=== PATIENT | female | born 1955 | race Caucasian/White ===

== ENCOUNTER → 2021-10-10 10:44 | Outpatient (BNVA) | payer MEDICARE, OTHER, SELFPAY | PROVIDERS: Family Provider Physician Assistant Medical; Visit Provider Nurse Practitioner Family | DX: R35.0 Frequency of micturition (principal); R35.89 Other polyuria; N39.0 Urinary tract infection, site not specified | CPT/HCPCS: 81000 ==

== ENCOUNTER 2023-01-19 04:51 | Inpatient (IN) | payer MEDICARE, OTHER, SELFPAY ==
[2023-01-19] VITALS (10 sets, daily range): BP systolic 119–150; BP diastolic 42–93; PULSE 64–97; RESP 16–25; TEMP 35.8–36.7; O2SAT 92–98; BMI 32.6
--- NOTE | 2023-01-19 06:01 | USCV_ITS ---
Colette Asif Age: 67 Gender: F : 1955 Exam Date: 01/19/2023 10:13 Ordering Phys: Ary Boswell MD Technologist: Alexander Dias Exam Location: [facility] [place] Indication: afib BP: 130 / 80 HR: 65 Rhythm: Sinus Technical Quality: Adequate MEASUREMENTS (Male / Female) Normal Values 2D ECHO LVOT Diameter 2.0 cm LV Ejection Fraction MOD 2C 66.2 % LV Ejection Fraction 2C AL 69.0 % LA Diameter 3.5 cm LA Width 3.2 cm LA Height 4.6 cm RA Width 3.2 cm RA Height 3.6 cm Aorta at Sinotubular Diameter 2.0 cm IVC Diameter 1.4 cm M-MODE Aortic Annulus Diameter 2.1 cm LA Ao Ratio MM 1.7 MV E Point Septal Separation 0.3 cm DOPPLER AV Peak Velocity 141.0 cm/s LVOT Peak Velocity 136.0 cm/s AV Area Cont Eq vti 3.4 cm squared AV Area Cont Eq pk 3.1 cm squared MV Peak Velocity 144.0 cm/s MV Area PHT 5.0 cm squared Mitral E to A Ratio 0.8 MV E' Velocity 40.5 cm/s Mitral E to MV E' Ratio 13.6 Mitral E to LV E' Lateral Ratio 16.6 Mitral E to LV E' Septal Ratio 11.8 TR Peak Velocity 250.5 cm/s TR Peak Gradient 25.1 mmHg TR Mean Velocity 191.3 cm/s TR Mean Gradient 16.3 mmHg TR Velocity Time Integral 64.9 cm Right Atrial Pressure 3.0 mmHg Pulmonary Artery Systolic Pressu 28.1 mmHg PV Peak Velocity 105.3 cm/s RV Acceleration Time 0.1 s RV Ejection Time 0.3 s RV AcT/ET 0.4 FINDINGS Left Ventricle Left ventricle is normal in size. LV systolic function is normal with EF 55 to 60%. No regional wall motion abnormalities are seen. Grade 1 diastolic dysfunction. Right Ventricle Normal size and function Right Atrium Normal in size Left Atrium Normal in size Mitral Valve Mild mitral annular calcification seen. Trace mitral regurgitation. Aortic Valve Structurally normal aortic valve. No significant stenosis or regurgitation. Tricuspid Valve Mild tricuspid regurgitation. Pulmonary artery systolic pressure is normal. Pulmonic Valve Mild pulmonic regurgitation. Pericardium Normal Aorta Normal in size IVC Appears to be normal CONCLUSIONS Technically limited quality echocardiogram because of poor ultrasonic windows. LV systolic function is normal with EF of 55 to 60%. Grade 1 diastolic dysfunction Trace mitral regurgitation Mild tricuspid regurgitation Mild pulmonic regurgitation. No comparison studies are available. Frandy Nowak MD (Electronically Signed) Final Date: 19 January 2023 15:55 S
--- NOTE | 2023-01-19 06:10 | PM.HP ---
Providers/Chief Complaint Admitting Physician: Ary Boswell MD Chief Complaint: Chest Pain\Afib with RVR History of Present Illness Colette Asif is a 67 year old female Medications/Allergies Home Medications Medication Instructions Recorded Confirmed Last Taken Type nitrofurantoin 100 mg PO Q12H 7 days #14 caps 10/10/21 01/19/23 01/17/23 Rx monohydrate/macrocrystals 100 mg capsule (Macrobid) vortioxetine 20 mg tablet 20 mg PO DAILY 10/10/21 01/19/23 01/17/23 History (Trintellix) atorvastatin 40 mg tablet 40 mg PO 1XD 01/19/23 01/19/23 01/18/23 History omeprazole 20 mg capsule,delayed 20 mg PO 1XD 01/19/23 01/19/23 01/18/23 History release Allergies Allergy/AdvReac Type Severity Reaction Status Date / Time aspirin Allergy Unknown Verified 10/10/21 10:42 Penicillins Allergy Unknown Verified 10/10/21 10:42 PFSH Acute PFSH: Medical History (Updated 10/10/21 @ 11:36 by SAAD Bailon) Major depression, chronic Family History (Updated 10/10/21 @ 11:33 by SAAD Bailon) Mother Hypertension Vitals/I&O/Wt Last Vital Signs Pulse 97 01/19/23 05:26 Resp 20 H 01/19/23 05:26 BP 141/42 01/19/23 05:26 Pulse Ox 95 01/19/23 05:26 O2 Del Method Room Air 01/19/23 05:26 Weight last 48 hrs Weight 68.521 kg Coding Level of Care Code Acute Code for Chg Fwd Diagnoses
--- NOTE | 2023-01-19 08:17 | P.HP_ITS ---
Providers/Chief Complaint Admitting Physician: Ary Boswell MD Chief Complaint: Chest Pain\Afib with RVR History of Present Illness Colette Asif is a 67 year old female who is traveling from [place] with past medical history of sleep apnea on CPAP, chronic and stable angina for which she follows up with her production potter in [place] with last stress test over 7 years ago, hyperlipidemia with strong family history of hyperlipidemia and CAD was transferred from the outside hospital for new onset atrial fibrillation with rapid ventricular response. As per the patient she was to travel back to [place] today when she woke up l ast night she had squeezing chest pain radiating to the neck along with nausea and left shoulder heaviness so she went to the ER where she was found to have heart rate running more than 150s. She denies any complaints currently. She states usually when she walks she does have left shoulder heaviness which has been getting worse over last 1 month. She was in the ER earlier last week because she fell and hit her head and needed at least 7-10 melita. Currently when seen in [facility] she is on Cardizem drip of 7.5 resting comfortably in bed on room air with heart rate running in 60s and has converted back to normal sinus rhythm Review of Systems 2 General: Reports: 10 or more systems reviewed and unremarkable except in HPI and below Const: Denies: fever(s), chills, body aches, change in appetite, change in weight, malaise, night sweats, diaphoresis, change in sleep pattern, daytime sl eepiness or snoring Eyes: Denies: change in vision, blurry vision, photophobia, eye discomfort or eye discharge ENMT: Denies: throat pain, enlarged tonsils, hoarseness, mouth pain, oral sores, dry mouth, tinnitus, nasal congestion or post nasal drip Card: Denies: chest pain, palpitations, irregular heart rhythm, edema, swelling of feet/ankles, lightheadedness, syncope, pre-syncope, dyspnea on exertion, orthopnea, leg pain with exertion or acrocyanosis Resp: Denies: dyspnea, productive cough, non-productive cough, wheezing, stridor, pain on inspiration, change in phlegm color, hemoptysis or chest congestion GI: Denies: abdominal pain, nausea, vomiting, hematemesis, coffee ground emesis, dysphagia, heartburn, diarrhea, constipation, bloating, GI cramping, change in bowel habits, pain on defecation, hematochezia or melena : Denies: flank pain, dysuria, urinary frequency, urinary urgency, urinary hesitancy, nocturia or hematuria Musc: Denies: neck pain, back pain, extremity pain, joint pain, joint swelling, joint redness, joint stiffness or limited range of motion Neuro: Denies: headache(s), numbness in extremities, weakness in extremities, sensory changes, lack of coordination, difficulty walking, frequent falls, dizziness, vertigo, confusion, Slurred speech present, difficulty communicating thoughts or seizure-like activity Psych: Denies: anxiety, depression, mood swings, panic attacks, hopelessness or irritability Endo: Denies: polyuria, polydipsia, tired all the time, cold intolerance, excessive sweating, flushing or heat intolerance Raciel/Lymph: Denies: easy bruising or easy bleeding All/Imm: Denies: tongue swelling, facial swelling or acute wheezing Medications/Allergies Home Medications Medication Instructions Recorded Confirmed Last Taken Type nitrofurantoin 100 mg PO Q12H 7 days #14 caps 10/10/21 01/19/23 01/17/23 Rx monohydrate/macrocrystals 100 mg capsule (Macrobid) vortioxetine 20 mg tablet 20 mg PO DAILY 10/10/21 01/19/23 01/17/23 History (Trintellix) atorvastatin 40 mg tablet 40 mg PO 1XD 01/19/23 01/19/23 01/18/23 History omeprazole 20 mg capsule,delayed 20 mg PO 1XD 01/19/23 01/19/23 01/18/23 History release Allergies Allergy/AdvReac Type Severity Reaction Status Date / Time aspirin Allergy Unknown Verified 10/10/21 10:42 Penicillins Allergy Unknown Verified 10/10/21 10:42 PFSH Acute PFSH: Medical History (Updated 01/19/23 @ 10:50 by Tc Bradford MD) Carpal tunnel syndrome on right Fall HLD (hyperlipidemia) Major depression, chronic New onset a-fib Sleep apnea with use of continuous positive airway pressure (CPAP) Unstable angina Surgical History (Updated 01/19/23 @ 09:08 by Tc Bradford MD) Status post breast reduction Family History (Updated 01/19/23 @ 09:02 by Tc Bradford MD) Mother Hypertension Other Hyperlipidemia Vitals/I&O/Wt Last Vital Signs Temp 97.9 F 01/19/23 07:29 Pulse 86 01/19/23 07:29 Resp 16 01/19/23 07:29 BP 119/67 01/19/23 07:29 Pulse Ox 97 01/19/23 07:29 O2 Del Method Room Air 01/19/23 07:29 Weight last 48 hrs Weight 68.521 kg Physical Exam 2 Narrative: General: No acute distress, AO x3, pleasant HEENT: PERRLA, pupils bilaterally equal and reactive, well-healed scar on the frontal scalp Chest: Normal vesicular breath sounds, no added sounds, equal good air entry bilaterally CVS: S1-S2 regular, no murmurs, no tachycardia, no gallops, no rubs Abdomen: Soft, nontender, no organomegaly, bowel sounds present Neuro: No focal deficits, no facial deformity, AO x3, power 5/5 in all limbs Data 01/19/23 08:40 01/19/23 08:40 A&P Assessment and plan (1) New onset a-fib: New diagnosis. Back to normal sinus rhythm currently. Currently on Cardizem 7.5 drip. Start on 30 mg every 6 hourly. Try to wean Cardizem drip off keeping heart rate less than 100. Ambulate. Telemetry monitoring. Check echocardiogram, D-dimer, TSH, urine drug screen. Discussed in detail with patient regarding need for possible anticoagulation for stroke prevention given possibility of paroxysmal A-fib. Discussed about merits versus demerits of being on anticoagulation. She is agreeable for anticoagulation. Given recent fall and head injury requiring sutures for now we will get a CT head. If negative for any bleed will start on Eliquis 5 mg twice daily. Continue prophylactic Lovenox till then. (2) HLD (hyperlipidemia): (3) Unstable angina: Seems to be chronic but getting worse recently over the last 1 month. Significant typical symptoms during tachycardia. Patient will need a cardiac stress test for further work-up. She lives in [place] and has a production potter over there. Last stress testing more than 6 years ago. Patient was to get cardiac stress test while admitted currently. We did discuss that tomorrow being the weekend the next stress test availability will be on Sunday. Patient is agreeable to stay. Start on aspirin 81 mg daily. Continue with home dose of atorvastatin. Check A1c, lipid panel, troponin one-time. Check echocardiogram as above. (4) Sleep apnea with use of continuous positive airway pressure (CPAP): Continue home CPAP Plan Full code Cardiac diet Lovenox for DVT prophylaxis Protonix for PUD prophylaxis Attestations Medical Necessity Statement*: Admission for more than 2 midnights for management of atrial fibrillation with rapid ventricular response while Cardizem drip was weaned off and transition to oral medication, typical significant unstable angina requiring ACS work-up Diagnoses New onset a-fib I48.91 HLD (hyperlipidemia) E78.5 Unstable angina I20.0 Sleep apnea with use of continuous positive airway pressure (CPAP) G47.30
[2023-01-19] MEDS: ondansetron 2 mg/ML SDV 2 mL 4 MG IVP (08:22)
[2023-01-19] MEDS: enoxaparin 40 mg/0.4 mL Syringe SUBCUT (08:22)
[2023-01-19] MEDS: pantoprazole DR 40 mg Tablet PO (08:22)
[2023-01-19 08:55] LABS: Basophils # 0.1 10^3/uL (0.0-0.1); Basophils % 0.6 %; Eosinophils # 0.1 10^3/uL (0.0-0.8); Eosinophils % 1.7 %; Hematocrit 39.9 % (36-47); Lymphocytes # 2.5 10^3/uL (0.8-4.8); Lymphocytes % 31.3 %; Mean Corpuscular HGB Conc 33.3 g/dL (30-55); Mean Corpuscular Hemoglobin 28.7 pg (27-33); Mean Platelet Volume 13.2 fL (7.4-10.4); Monocytes # 0.6 10^3/uL (0.2-0.9); Monocytes % 7.6 %; Neutrophils # 4.75 10^3/uL (1.8-7.7); Neutrophils % 58.6 %; Nucleated Red Blood Cells % 0 %; Platelet Count 149 10^3/cmm (157-399); Red Blood Count 4.64 10^6/uL (3.85-5.65); Red Cell Distribution Width 14.4 % (12.1-15.1); White Blood Count 8.12 10^3/uL (3.29-11.43)
--- NOTE | 2023-01-19 08:58 | CT_ITS ---
WS: [id number] CT HEAD TECHNIQUE: Noncontrast CT of the head obtained from the skullbase to the vertex. CLINICAL INFORMATION: History of head injury COMPARISON: None. DLP: 1026.[address] scans at [facility] use at least one of these dose optimization techniques: automated e xposure control; mA and/or kV adjustment per patient size (includes targeted exams where dose is matc hed to clinical indication); or iterative reconstruction. FINDINGS: No evidence of intracranial hemorrhage or mass effect. Ventricular system and basal cisterns are jo nt. Mild small vessel changes with moderate parenchymal volume loss in the frontal lobes with promine nt subarachnoid spaces. No extra-axial fluid collections. No evidence of mass or mass effect. Paranasal sinuses and mastoid air cells are well aerated. .Normal visualized soft tissues. IMPRESSION: 1. No evidence of intracranial hemorrhage or mass effect. 2. Mild small vessel changes with moderate parenchymal volume loss worse in the frontal lobes. 3. Vascular calcification. 4. Paranasal sinuses and mastoid air cells are well aerated. 5. No acute intracranial findings.
[2023-01-19 09:05] LABS: Estmated Average Glucose 140; Hemoglobin A1C 6.5 % (4.0-6.0)
[2023-01-19 09:08] LABS: D Dimer <= 0.27 ug/mLFEU (0-0.59)
[2023-01-19 09:21] LABS: Alanine Aminotransferase 35 U/L (0-33); Albumin Level 3.9 g/dL (3.5-5.2); Alkaline Phosphatase 132 U/L (35-105); Aspartate Amino Transferase 24 U/L (0-32); Blood Urea Nitrogen 13 mg/dL (8-23); Calcium 8.7 mg/dL (8.5-10.5); Carbon Dioxide 25 mmol/L (22-29); Chloride 107 mmol/L (98-107); Globulin 2.9 g/dL (1.3-4.6); Glomerular Filtration Rate 123.4 mL/min (90-130); Glucose 128 mg/dL (65-115); Magnesium 1.9 mg/dL (1.7-2.3); Osmolality Calculated 296 mOsm/kg (285-295); Sodium 142 mmol/L (136-145); Thyroid Stimulating Hormone 3.11 uIU/mL (0.27-4.20); Total Bilirubin 0.4 mg/dL (0.15-1.2); Total Protein 6.8 g/dL (6.6-8.7)
[2023-01-19 09:25] LABS: Iron 81 ug/dL (37-145); Percent Saturation 27.5 % (20-50); Total Iron Binding Capacity 294 mcg/dl; Unsaturated Iron Binding 213 ug/dL (112-347)
[2023-01-19 09:32] LABS: Amphetamines Screen Urine Negative (Negative); Barbiturates Screen Urine Negative (Negative); Benzodiazepines Screen Urine Negative (Negative); Cocaine Screen Urine Negative (Negative); Opiate Screen Urine Negative (Negative); PCP Screen Urine Negative (Negative); THC Screen Urine Negative (Negative)
[2023-01-19 09:37] LABS: Troponin T (5th) Once 17 ng/L (0-10)
[2023-01-19 09:41] LABS: Procalcitonin 0.05 ng/mL (0-0.5); Vitamin B12 444 pg/mL (232-1245)
[2023-01-19] MEDS: dilTIAZem 30 mg Tablet PO ×2 (09:50→17:42)
[2023-01-19 11:16] LABS: Add Urine Microscopic? YES; Bilirubin Urine Neg (Negative); Blood Urine Neg (Negative); Glucose Urine UA Norm (Normal); Ketones Urine 1+ (Negative); Leukocyte Esterase Urine Trace (Negative); Nitrate Urine Negative (Negative); Protein Urine Neg (Negative); Urine Appearance Clear (CLEAR); Urine Color Yellow (Yellow); Urobilinogen Urine Norm (Negative); pH Urine 5 (5-7)
[2023-01-19 11:17] LABS: Add Urine Culture? No; Bacteria Urine TRACE /hpf; Mucus Urine TRACE /hpf; RBC Urine 0-4 /hpf (0-2); Squamous Epithelial Cell Urine 0-4 /hpf (0-5); WBC Urine 0-4 /hpf (0-5)
--- NOTE | 2023-01-19 12:26 | PC.SOCIAL ---
Pg 2 IMM Explained to pt Pg 2 IMM. No questions voiced. Provided pt a copy. Initialed, dated, & timed a copy & placed in chart.
[2023-01-19] MEDS: enoxaparin 80 mg/0.8 mL Syringe 70 MG SUBCUT (17:42)
[2023-01-19] MEDS: NON-FORMULARY MEDICATION (Vortioxetine [Trintellix] 20 MG) 20 EACH PO (20:24)
[2023-01-20 00:04] VITALS: PULSE 70; RESP 18
[2023-01-20] MEDS: dilTIAZem 30 mg Tablet PO ×2 (01:07→08:43)
[2023-01-20 03:31] LABS: Basophils % 0.4 %; Eosinophils # 0.2 10^3/uL (0.0-0.8); Eosinophils % 2.6 %; Lymphocytes # 2.7 10^3/uL (0.8-4.8); Mean Corpuscular HGB Conc 32.6 g/dL (30-55); Mean Corpuscular Hemoglobin 28.5 pg (27-33); Mean Corpuscular Volume 87.4 fl (85-98); Mean Platelet Volume 13.6 fL (7.4-10.4); Monocytes # 0.7 10^3/uL (0.2-0.9); Neutrophils % 47.7 %; Nucleated Red Blood Cells % 0 %; Platelet Count 124 10^3/cmm (157-399); Red Blood Count 4.35 10^6/uL (3.85-5.65); Red Cell Distribution Width 14.3 % (12.1-15.1); White Blood Count 6.92 10^3/uL (3.29-11.43)
[2023-01-20 04:06] LABS: Alanine Aminotransferase 35 U/L (0-33); Albumin Level 3.6 g/dL (3.5-5.2); Alkaline Phosphatase 122 U/L (35-105); Anion Gap 11.5 (5-19); Aspartate Amino Transferase 23 U/L (0-32); Blood Urea Nitrogen 10 mg/dL (8-23); Calcium 8.4 mg/dL (8.5-10.5); Carbon Dioxide 26 mmol/L (22-29); Chloride 104 mmol/L (98-107); Globulin 2.7 g/dL (1.3-4.6); Glucose 100 mg/dL (65-115); Osmolality Calculated 285 mOsm/kg (285-295); Potassium 3.5 mmol/L (3.5-5.1); Sodium 138 mmol/L (136-145); Total Bilirubin 0.3 mg/dL (0.15-1.2); Total Protein 6.3 g/dL (6.6-8.7)
[2023-01-20 04:07] LABS: Cholesterol 135 mg/dL (0-200); HDL Cholesterol 27 mg/dL (60-100); LDL Cholesterol Calculated 53 mg/dL (50-129); Magnesium 2.2 mg/dL (1.7-2.3); Phosphorus 3.6 mg/dL (2.5-4.5); Triglycerides 275 mg/dL (0-150); VLDL Cholestrol Calculation 55 mg/dL (0-30)
[2023-01-20 04:12] VITALS: BP 112/60; PULSE 68; RESP 19; TEMP 36.4
[2023-01-20 04:23] LABS: Folate Level 11.4 ng/mL (4.8-37.3)
[2023-01-20 04:31] VITALS: PULSE 56
[2023-01-20] MEDS: enoxaparin 80 mg/0.8 mL Syringe 70 MG SUBCUT (05:34)
[2023-01-20 07:31] VITALS: BP 145/78; PULSE 71; RESP 22; O2SAT 96
[2023-01-20] MEDS: atorvastatin 40 mg Tablet PO (08:43)
[2023-01-20] MEDS: pantoprazole DR 40 mg Tablet PO (08:43)
[2023-01-20 10:00] VITALS: BMI 32.6
--- NOTE | 2023-01-20 10:58 | PM.DCS ---
Discharge Providers Date of Admission: 01/19/23 04:51 Date of Discharge: January 20, 2023 Attending Provider at Admission: Ary Boswell MD Attending Provider at Discharge: Tc Bradford MD Diagnoses at Discharge Discharge Diagnosis (1) New onset a-fib: Status: Acute (2) HLD (hyperlipidemia): Status: Acute (3) Unstable angina: Status: Acute (4) Sleep apnea with use of continuous positive airway pressure (CPAP): Status: Acute Reason for Visit Reason for Visit: Chest Pain\Afib with RVR Hospital Course Hospital Course Colette Asif is a 67 year old female who is traveling from [place] with past medical history of sleep apnea on CPAP, chronic and stable angina for which she follows up with her drug safety coordinator in [place] with last stress test over 7 years ago, hyperlipidemia with strong family history of hyperlipidemia and CAD was transferred from the outside hospital for new onset atrial fibrillation with rapid ventricular response. As per the patient she was to travel back to [place] today when she woke up last night she had squeezing chest pain radiating to the neck along with nausea and left shoulder heaviness so she went to the ER where she was found to have heart rate running more than 150s.? She denies any complaints currently.? She states usually when she walks she does have left shoulder heaviness which has been getting worse over last 1 month.? She was in the ER earlier last week because she fell and hit her head and needed at least 7-10 melita. Currently when seen in [facility] she is on Cardizem drip of 7.5 resting comfortably in bed on room air with heart rate running in 60s and has converted back to normal sinus rhythm. Patient was admitted to the hospital further evaluation and management of atrial fibrillation with rapid ventricular response. She was transitioned over to oral Cardizem. Her heart rate remained stable both at rest and on exertion. Echocardiogram was done which showed a normal EF without regional wall motion abnormality. Anticoagulation was discussed in detail with the patient. Solis Vascor 3 for sex, age and history of hypertension. She verbalized understanding is agreeable for full dose aspirin. Patient remained chest pain-free during hospitalization. Troponins were negative. Patient needs a stress test to rule out ACS given significant chest discomfort when she was tachycardic. Need for stress test were discussed in detail. Patient states she has a drug safety coordinator back in [place] and would want to get the stress test with the same physician if she can. She is discharged home at a stable condition on oral Cardizem 30 mg 3 times a day, aspirin 325 mg daily for anticoagulation with advised to follow-up with her outpatient drug safety coordinator at the earliest for need of Lexiscan stress test. Patient was counseled in detail about lifestyle modifications. Physical Exam Narrative: General: No acute distress, AO x3, pleasant HEENT: PERRLA, pupils bilaterally equal and reactive, well-healed scar on the frontal scalp Chest: Normal vesicular breath sounds, no added sounds, equal good air entry bilaterally CVS: S1-S2 regular, no murmurs, no tachycardia, no gallops, no rubs Abdomen: Soft, nontender, no organomegaly, bowel sounds present Neuro: No focal deficits, no facial deformity, AO x3, power 5/5 in all limbs Discharge Data Studies Completed and Pending Completed Studies During Hospitalization Category Date Time Status CT head wo con* [id number] Routine Cat Scan 01/19/23 08:58 Completed CV. echo complete* [id number] Routine Ultrasound 01/19/23 06:01 Completed Pending at discharge Category Date Time Status Sestamibi Stress Test Request Routine Exams 01/19/23 11:57 Ordered MAG [Magnesium] AM LABS Lab 01/21/23 04:00 Ordered MAG [Magnesium] AM LABS Lab 01/22/23 04:00 Ordered PHOS [Phosphorus] AM LABS Lab 01/21/23 04:00 Ordered PHOS [Phosphorus] AM LABS Lab 01/22/23 04:00 Ordered NM beatrice perf SPECT r/s* [id number] Routine Nuc Med 01/22/23 07:00 Ordered Laboratory Results WBC 6.92 10^3/uL (3.29-11.43) 01/20/23 02:56 RBC 4.35 10^6/uL (3.85-5.65) 01/20/23 02:56 Hgb 12.40 g/dL (11.27-16.99) 01/20/23 02:56 Hct 38.0 % (36-47) 01/20/23 02:56 MCV 87.4 fl (85-98) 01/20/23 02:56 MCH 28.5 pg (27-33) 01/20/23 02:56 MCHC 32.6 g/dL (30-55) 01/20/23 02:56 RDW 14.3 % (12.1-15.1) 01/20/23 02:56 Plt Count 124 10^3/cmm (157-399) L 01/20/23 02:56 MPV 13.6 fL (7.4-10.4) H 01/20/23 02:56 Neut % (Auto) 47.7 % 01/20/23 02:56 Lymph % (Auto) 39.0 % 01/20/23 02:56 Trego % (Auto) 10.0 % 01/20/23 02:56 Eos % (Auto) 2.6 % 01/20/23 02:56 Baso % (Auto) 0.4 % 01/20/23 02:56 Neut # (Auto) 3.30 10^3/uL (1.8-7.7) 01/20/23 02:56 Lymph # (Auto) 2.7 10^3/uL (0.8-4.8) 01/20/23 02:56 [place] # (Auto) 0.7 10^3/uL (0.2-0.9) 01/20/23 02:56 Eos # (Auto) 0.2 10^3/uL (0.0-0.8) 01/20/23 02:56 Baso # (Auto) 0.0 10^3/uL (0.0-0.1) 01/20/23 02:56 Nucleated RBC % (auto) 0 % 01/20/23 02:56 Nucleated RBCs # 0.0 /100WBC 01/20/23 02:56 D-Dimer <= 0.27 ug/mLFEU (0-0.59) 01/19/23 08:40 Sodium 138 mmol/L (136-145) 01/20/23 02:56 Potassium 3.5 mmol/L (3.5-5.1) 01/20/23 02:56 Chloride 104 mmol/L (98-107) 01/20/23 02:56 Carbon Dioxide 26 mmol/L (22-29) 01/20/23 02:56 Anion Gap 11.5 (5-19) 01/20/23 02:56 BUN 10 mg/dL (8-23) 01/20/23 02:56 Creatinine 0.6 mg/dL (0.5-0.9) 01/20/23 02:56 GFR Calculation 100.0 mL/min (90-130) 01/20/23 02:56 Glucose 100 mg/dL (65-115) 01/20/23 02:56 Estimat Average Glucose 140 01/19/23 08:40 Hemoglobin A1c 6.5 % (4.0-6.0) H 01/19/23 08:40 Calculated Osmolality 285 mOsm/kg (285-295) 01/20/23 02:56 Calcium 8.4 mg/dL (8.5-10.5) L 01/20/23 02:56 Phosphorus 3.6 mg/dL (2.5-4.5) 01/20/23 02:56 Magnesium 2.2 mg/dL (1.7-2.3) 01/20/23 02:56 Iron 81 ug/dL (37-145) 01/19/23 08:40 TIBC 294 mcg/dl 01/19/23 08:40 % Saturation 27.5 % (20-50) 01/19/23 08:40 Unsat Iron Binding 213 ug/dL (112-347) 01/19/23 08:40 Total Bilirubin 0.3 mg/dL (0.15-1.2) 01/20/23 02:56 AST 23 U/L (0-32) 01/20/23 02:56 ALT 35 U/L (0-33) H 01/20/23 02:56 Alkaline Phosphatase 122 U/L (35-105) H 01/20/23 02:56 Troponin T Gen 5 ng/L 17 ng/L (0-10) H 01/19/23 08:40 Total Protein 6.3 g/dL (6.6-8.7) L 01/20/23 02:56 Albumin 3.6 g/dL (3.5-5.2) 01/20/23 02:56 Globulin 2.7 g/dL (1.3-4.6) 01/20/23 02:56 Triglycerides 275 mg/dL (0-150) H 01/20/23 02:56 Cholesterol 135 mg/dL (0-200) 01/20/23 02:56 LDL Cholesterol, Calc 53 mg/dL (50-129) 01/20/23 02:56 Total VLDL Cholesterol 55 mg/dL (0-30) H 01/20/23 02:56 HDL Cholesterol 27 mg/dL (60-100) L 01/20/23 02:56 Cholesterol/HDL Ratio 5.00 mg/dL (0.0-4.40) H 01/20/23 02:56 Vitamin B12 444 pg/mL (232-1245) 01/19/23 08:40 Folate 11.4 ng/mL (4.8-37.3) 01/20/23 02:56 Procalcitonin 0.05 ng/mL (0-0.5) 01/19/23 08:40 TSH 3.11 uIU/mL (0.27-4.20) 01/19/23 08:40 Urine Color Yellow (Yellow) 01/19/23 09:03 Urine Appearance Clear (CLEAR) 01/19/23 09:03 Urine pH 5 (5-7) 01/19/23 09:03 Ur Specific [place] 1.020 (1.005-1.030) 01/19/23 09:03 Urine Protein Neg (Negative) 01/19/23 09:03 Urine Glucose (UA) Norm (Normal) 01/19/23 09:03 Urine Ketones 1+ (Negative) H 01/19/23 09:03 Urine Blood Neg (Negative) 01/19/23 09:03 Urine Nitrate Negative (Negative) 01/19/23 09:03 Urine Bilirubin Neg (Negative) 01/19/23 09:03 Urine Urobilinogen Norm mg/dL (Negative) 01/19/23 09:03 Ur Leukocyte Esterase Trace (Negative) H 01/19/23 09:03 Urine RBC 0-4 /hpf (0-2) H 01/19/23 09:03 Urine WBC 0-4 /hpf (0-5) H 01/19/23 09:03 Ur Squamous Epith Cells 0-4 /hpf (0-5) H 01/19/23 09:03 Amorphous Sediment Not Reportable 01/19/23 09:03 Urine Bacteria Trace /hpf (NONE) 01/19/23 09:03 Urine Mucus Trace /hpf 01/19/23 09:03 Urine Opiates Screen Negative ng/mL (Negative) 01/19/23 09:03 Ur Barbiturates Screen Negative ng/mL (Negative) 01/19/23 09:03 Ur Phencyclidine Scrn Negative ng/mL (Negative) 01/19/23 09:03 Ur Amphetamines Screen Negative ng/mL (Negative) 01/19/23 09:03 U Benzodiazepines Scrn Negative ng/mL (Negative) 01/19/23 09:03 Urine Cocaine Screen Negative ng/mL (Negative) 01/19/23 09:03 U Marijuana (THC) Screen Negative ng/mL (Negative) 01/19/23 09:[address] Head: Radiologist's impression: MPRESSION: 1.? No evidence of intracranial hemorrhage or mass effect. 2.? Mild small vessel changes with moderate parenchymal volume loss worse in the frontal lobes. 3.? Vascular calcification. 4.? Paranasal sinuses and mastoid air cells are well aerated. 5.? No acute intracranial findings. Dictated By: Nathan Powers MD Echo: Radiologist's impression: CONCLUSIONS ?Technically limited quality echocardiogram because of poor?ultrasonic windows. ?LV systolic function is normal with EF of 55 to 60%. ?Grade 1 diastolic dysfunction ?Trace mitral regurgitation ?Mild tricuspid regurgitation ?Mild pulmonic regurgitation. ?No comparison studies are available. ?Frandy Nowak MD ?(Electronically Signed) ?Final Date:? ? ? 19 January 2023 ? 15:55 Vitals Last Vital Signs Temp 97.5 F L 01/20/23 04:12 Pulse 71 01/20/23 07:31 Resp 22 H 01/20/23 07:31 BP 145/78 01/20/23 07:31 Pulse Ox 96 01/20/23 07:31 O2 Del Method Room Air 01/20/23 07:31 Discharge Plan Discharge Patient Disposition: Home Condition: Stable Prescriptions: New Cardizem 30 mg tablet 30 mg PO Q8H Qty: 90 0RF aspirin 325 mg tablet 325 mg PO DAILY Qty: 30 0RF Continued Trintellix 20 mg tablet 20 mg PO DAILY atorvastatin 40 mg tablet 40 mg PO 1XD omeprazole 20 mg capsule,delayed release(DR/EC) 20 mg PO 1XD Discontinued nitrofurantoin monohyd/m-cryst [Macrobid] 100 mg capsule 100 mg PO Q12H 7 Days Qty: 14 0RF Rx Instructions: must administer with a meal/food Discharge Orders: Discharge Order (Routine); Ordered 01/20/23 Ordered By: Tc Bradford Discharge Diet: Cardiac Discharge Activity: Resume usual activity and Increase activity as tolerated Patient Instructions: Diltiazem (By mouth) (Cardizem, Cardizem CD, Cardizem LA, Cardizem SR), Aspirin (By mouth) (Roland Extra Strength, Roland Aspirin Children's,..., A-fib (Atrial Fibrillation) (DC), Chest Pain Stoplight, Opioid Safety Activity Restrictions/Additional Instructions: Cardizem 30 mg 3 times a day has been added to your medication list for controlling your heart rate. Aspirin 325 mg daily has been added for anticoagulation given new onset A-fib which would also help you with unstable angina. Please follow-up with the outpatient drug safety coordinator for Lexiscan stress test at the earliest. Discharge Attestations Time Spent in Discharge Care*: greater than 30 min Specific Discharge Activities: educating patient, discussing with pcp/other providers, discussing with child welfare caseworker/social workers/dc planners, documenting/other paperwork and evaluating patient/reviewing data Status at Discharge: Cognitive status at discharge: cognitively intact, Behavioral status at discharge: cooperative, Functional status at discharge: independent ambulation, Overall status at discharge: patient is back to baseline Quality Metrics Clinical Quality Measures [ No reported AMI, CVA or VTE this stay] Coding Level of Care Code 43740 Total time (in minutes) for Discharge: 50 Diagnoses New onset a-fib I48.91 HLD (hyperlipidemia) E78.5 Unstable angina I20.0 Sleep apnea with use of continuous positive airway pressure (CPAP) G47.30
[2023-01-20 12:56] VITALS: BP 145/78; PULSE 71; RESP 22; O2SAT 96
--- NOTE | 2023-01-20 12:59 | PC.NURSE ---
Discharge Note Patient discharged to home via POV accompanied by family. Discharge instructions reviewed with patient and/or traveling sales representative. Mobile pharmacy medications and/or prescriptions provided. Belongings/home medications returned.
== END 2023-01-20 13:00 | disposition home or self-care (01) | DRG 309 ==
PROVIDERS: Admitting Provider Student in an Organized Health Care Education/Training Program; Visit Provider Student in an Organized Health Care Education/Training Program
DX: I48.91 Unspecified atrial fibrillation (principal); F33.9 Major depressive disorder, recurrent, unspecified; I20.0 Unstable angina; E78.5 Hyperlipidemia, unspecified; G47.30 Sleep apnea, unspecified; W19.XXXD Unspecified fall, subsequent encounter; S09.90XD Unspecified injury of head, subsequent encounter; Z83.438 Family history of other disorder of lipoprotein metabolism and other lipidemia; Z82.49 Family history of ischemic heart disease and other diseases of the circulatory system; Z99.89 Dependence on other enabling machines and devices
CPT/HCPCS: 36415; 70450; 80053; 80061; 80306; 81001; 81015; 82607; 82746; 83036; 83540; 83550; 83735; 84100; 84145; 84443; 84484; 85025; 85378; 93306; 94664; 96372; 96376; J1650; J2405

== ENCOUNTER → 2023-11-07 08:04 | Outpatient (CLI) | payer MEDICARE, OTHER, SELFPAY ==
--- NOTE | 2023-11-07 08:30 | CT_ITS ---
WS: [id number] CT HEAD TECHNIQUE: Noncontrast CT of the head obtained from the skullbase to the vertex. CLINICAL INFORMATION: S02.85XA - Fracture of orbit, unspecified, initial encoun... COMPARISON: Head CT 01/19/2023 DLP: 1022.[address] scans at [facility] use at least one of these dose optimization techniques: automated e xposure control; mA and/or kV adjustment per patient size (includes targeted exams where dose is matc hed to clinical indication); or iterative reconstruction. FINDINGS: No evidence of intracranial hemorrhage or mass effect. Ventricular system and basal cisterns are jo nt. Mild small vessel changes with moderate parenchymal volume loss worse in the frontal lobes. No ex tra-axial fluid collections. No evidence of mass or mass effect. Incidental slightly low-lying cerebe llar tonsils. Paranasal sinuses and mastoid air cells are well aerated. .Normal visualized soft tissues. CT/CT head wo con* [id number] IMPRESSION: 1. No evidence of intracranial hemorrhage or mass effect. 2. Mild small vessel changes. Moderate parenchymal volume loss worse in the fr ontal lobes. 3. Paranasal sinuses and mastoid air cells are well aerated. 4. No acute intracranial findings. Note facial bone CT could be ordered if concern regarding facial fractures
== END | disposition home or self-care (01) ==
LOC: RAD 08:04
PROVIDERS: PCP Nurse Practitioner Family; Visit Provider Nurse Practitioner Family
DX: S02.85XA Fracture of orbit, unspecified, initial encounter for closed fracture (principal); G31.89 Other specified degenerative diseases of nervous system
CPT/HCPCS: 70450